=== PATIENT | male | born 1960 | race Caucasian/White ===

== ENCOUNTER 2018-04-11 12:07 | Day surgery (SDC) | payer BC, SELFPAY ==
[2018-04-11] VITALS (7 sets, daily range): BP systolic 97–130; BP diastolic 63–76; PULSE 67–85; RESP 15–21; TEMP 36.6–37; O2SAT 95–98; BMI 62.0
--- NOTE | 2018-04-11 | PATH_ITS ---
[facility] Accession Number: [id number] . 01 Material submitted: . SIGMOID POLYP . 02 Diagnosis: Sigmoid Polyp: Tubular adenoma; negative for high-grade dysplasia. MRV/04/12/2018 . 02 Electronically signed: . Светлана Taylor MD, Pathologist NPI- [id number] . 01 Gross description: . Received one formalin-filled container labeled with the patient's name and labeled sigmoid polyp. The specimen consists of a 0.4 cm portion of tissue. Entirely submitted in one cassette. ([id number]) /[facility] . 02 Pathologist provided ICD-10: K63.5 . 02 CPT . 296010 Performed at: [address] [facility] [address] [id number] MD Natanael Harper MD Phone: [phone] Performed at: 02 [facility] [address] [place], [place] [id number] MD Marilin Tate MD Phone: [phone]
[2018-04-11] MEDS: SODIUM CHLORIDE 0.9% 1,000 ML 42 ML IV (12:32)
--- NOTE | 2018-04-11 13:05 | PM.HP.1 ---
History of Present Illness Date Patient Seen: 04/11/18 Time Patient Seen: 13:06 Chief complaint: [id number] Narrative: Personal history of colon polyps and family history of colon cancer Patient History Medical History Anxiety (Acute) Family & Social History Social History: household members spouse Meds Home Medications Medication Instructions Recorded Confirmed Type zolpidem [Ambien CR] 6.25 mg PO HS #0 ter 02/18/13 History Exam Vital Signs (past 8 hours): - 04/11/18 12:19 Temperature 98.6 F Pulse Rate 85 Respiratory Rate 16 Blood Pressure 130/76 Pulse Oximetry 98 Oxygen Delivery Method Room Air Narrative Exam Narrative: Oropharynx free of lesions Chest clear to auscultation percussion Cardiac exam reveals no S3 or murmur Assessment & Plan Plan: Assessment/Plan Narrative: Personal history of colon polyps and family history of colon cancer in a father and paternal uncle. Need for follow-up colonoscopy. Risks benefits and alternatives have been explained.
--- NOTE | 2018-04-11 13:08 | P.HP_ITS ---
History of Present Illness Date Patient Seen: 04/11/18 Time Patient Seen: 13:06 Chief complaint: [id number] Narrative: Personal history of colon polyps and family history of colon cancer Patient History Medical History Anxiety (Acute) Family & Social History Social History: household members spouse Meds Home Medications Medication Instructions Recorded Confirmed Type zolpidem [Ambien CR] 6.25 mg PO HS #0 ter 02/18/13 History Exam Vital Signs (past 8 hours): - 04/11/18 12:19 Temperature 98.6 F Pulse Rate 85 Respiratory Rate 16 Blood Pressure 130/76 Pulse Oximetry 98 Oxygen Delivery Method Room Air Narrative Exam Narrative: Oropharynx free of lesions Chest clear to auscultation percussion Cardiac exam reveals no S3 or murmur Assessment & Plan Plan: Assessment/Plan Narrative: Personal history of colon polyps and family history of colon cancer in a father and paternal uncle. Need for follow-up colonoscopy. Risks benefits and alternatives have been explained.
--- NOTE | 2018-04-11 13:13 | PM.OP.ENDO ---
Operative Date/Time/Diagnoses Date of procedure: 04/11/18 Time of procedure: 13:13 Pre-op diagnosis: See indication and findings Procedure & Clinicians Study performed: Colonoscopy Same procedure as scheduled: Yes Indications: Family history of colon cancer in a father and paternal uncle and personal history of colon polyps Surgeon: Ashley Leggett Procedure Notes Procedure in detail: After informed consent was obtained the patient was placed in left lateral decubitus position. The video colonoscope was introduced the rectum slowly advanced to the cecum. On slow withdrawal mucosa was carefully examined. Preparation was good. The scope was removed. The patient tolerated the procedure well. Blood loss none Complications none Sedation Versed 8 mg fentanyl 100 mcg IV titration Total sedation time 23 min Findings 1. 5 mm sigmoid polyp Jumbo biopsy removed completely 2. Scattered sigmoid diverticulosis 3. Otherwise negative colonoscopy to cecum We will check pathology but this is almost certainly adenomatous and he will need follow-up colonoscopy in 5 years if it is. Versed
[2018-04-11] MEDS: MIDAZOLAM 5 MG/5 ML VIAL IV (13:24)
[2018-04-11] MEDS: fentaNYL 250 MCG/5 ML INJ IV (13:25)
--- NOTE | 2018-04-11 13:36 | SUR.PHASEI ---
stable pacu stay
--- NOTE | 2018-04-11 14:06 | SUR.PHASEII ---
ready for discharge, report to tara.
== END 2018-04-11 14:20 ==
LOC: ENDO 12:09
PROVIDERS: PCP Physician Assistant Medical; Visit Provider Internal Medicine Gastroenterology
PROC: 0DJD8ZZ Inspection of Lower Intestinal Tract, Via Natural or Artificial Opening Endoscopic (ICD-10-PCS; CPT 45378; principal; 2018-04-11 13:00)
DX: Z86.010 Personal history of colon polyps (principal); Z80.0 Family history of malignant neoplasm of digestive organs; F41.9 Anxiety disorder, unspecified; D12.5 Benign neoplasm of sigmoid colon
CPT/HCPCS: 45380; J2250; J3010

== ENCOUNTER → 2019-06-12 09:10 | Outpatient (CLI) | payer BC, SELFPAY ==
[2019-06-12 09:48] LABS: Influenza A - CEPHEID Flu A NEGATIVE (NEGATIVE); Influenza B - CEPHEID Flu B NEGATIVE (NEGATIVE)
== END ==
PROVIDERS: PCP Physician Assistant Medical; Visit Provider Physician Assistant
DX: R68.89 Other general symptoms and signs (principal)
CPT/HCPCS: 87502

== ENCOUNTER 2023-05-24 12:53 | Day surgery (SDC) | payer BC, SELFPAY ==
--- NOTE | 2023-05-24 | PATH_ITS ---
[facility] Accession Number: [id number] No. of containers..02 Tissue . 01 Material submitted: . PART A: cecum - CECAL POLYP PART B: colon - RIGHT COLON POLYP . 01 Diagnosis: A. Cecal Polyp: Tubular adenoma. . B. Right Colon Polyp: Tubular adenoma. [facility] 05/26/2023 1020 Local . 01 Electronically signed: . Emanuel Allen MD, PhD, Pathologist NPI- [id number] . 01 Gross description: . Part A: CECAL POLYP: Received in formalin is 1 fragment(s) of singh, soft tissue measuring 0.5 x 0.3 x 0.3 cm which is bisected and submitted entirely in 1 cassette(s) Part B: RIGHT COLON POLYP: Received in formalin is multiple fragment(s) of singh, soft tissue measuring 0.6 x 0.3 x 0.1 cm in aggregate submitted entirely in 1 cassette(s) /AA 05/25/2023 0408 Local . 01 Pathologist provided ICD-10: D12.0, D12.6 . 01 CPT . 722504, 480682 Specimen Comment: A courtesy copy of this report has been sent to [phone] Performed at: 01 [facility] [address] [place] [address] Suite [facility], [place], [place] [id number] MD Natanael Harper MD Phone: [phone]
[2023-05-24] MEDS: LACTATED RINGERS 1,000 ML 84 ML IV (13:18)
[2023-05-24 13:28] VITALS: BP 138/84; PULSE 71; RESP 16; TEMP 36.4; O2SAT 95; BMI 29.0
--- NOTE | 2023-05-24 13:49 | PM.HP.1 ---
History of Present Illness History of Present Illness Date Patient Seen: 05/24/23 Chief complaint: Colonoscopy Narrative: Personal history of colon polyps [facility] Medical History (Updated 06/12/19 @ 09:23 by Ava Abel PA-C) Bronchitis Anxiety Social History household members: spouse Smoking Status: Never smoker alcohol intake: former Meds Home Medications and Allergies Home Medications Medication Instructions Recorded Confirmed Type No Known Home Medications 05/24/23 05/24/23 History Allergies Allergy/AdvReac Type Severity Reaction Status Date / Time No Known Drug Allergies Allergy Verified 05/24/23 13:15 Exam Vital Signs (past 8 hours): - 05/24/23 13:28 Temperature 97.6 F Pulse Rate 71 Respiratory Rate 16 Blood Pressure 138/84 Pulse Oximetry 95 Oxygen Delivery Method Room Air Oxygen Delivery Method Room Air Narrative Exam Narrative: Oropharynx oropharynx free of lesions Chest clear to auscultation percussion Cardiac exam reveals no S3 or murmur Assessment & Plan Assessment & Plan narrative: History of colon polyps need for follow-up colonoscopy. Risks, benefits, alternatives have been explained.
--- NOTE | 2023-05-24 13:49 | PM.OP.COLON ---
Operative Date/Time/Diagnoses Date of procedure: 05/24/23 Pre-op diagnosis: See indication and findings Procedure & Clinicians Study performed: Colonoscopy Indications: History of colon polyps Surgeon: Ashley Leggett Procedure Notes Procedure in detail: After informed consent was obtained patient was placed in left lateral decubitus position. Video colonoscope was introduced the rectum slowly advanced cecum. Preparation was good. On slow withdrawal mucosa was carefully examined. The scope was removed. The patient tolerated procedure well. Blood loss none Complications none Sedation mac Findings 1. 6 mm polyp in the cecum cold snared and removed completely 2. 5 mm polyp in the left colon cold snared and removed completely 3. Otherwise negative colonoscopy to cecum Will be in touch regarding the pathology results and whether that should cause is to shorten the surveillance interval.
[2023-05-24 14:11] VITALS: BP 110/61; PULSE 69; RESP 25; TEMP 36.3; O2SAT 94
[2023-05-24 14:13] VITALS: BP 106/61; PULSE 67; RESP 28; O2SAT 93
[2023-05-24 14:19] VITALS: BP 108/64; PULSE 75; RESP 22; TEMP 36.6; O2SAT 94
[2023-05-24 14:20] VITALS: BP 125/53; PULSE 70; RESP 20; O2SAT 95
== END 2023-05-24 14:50 | disposition home or self-care (01) ==
PROVIDERS: PCP Physician Assistant Medical; Referring Provider Internal Medicine Gastroenterology; Visit Provider Internal Medicine Gastroenterology
PROC: 0DJD8ZZ Inspection of Lower Intestinal Tract, Via Natural or Artificial Opening Endoscopic (ICD-10-PCS; CPT 45378; principal; 2023-05-24 14:00)
DX: Z12.11 Encounter for screening for malignant neoplasm of colon (principal); Z86.010 Personal history of colon polyps; D12.0 Benign neoplasm of cecum; D12.2 Benign neoplasm of ascending colon
CPT/HCPCS: 45385; J2704

== ENCOUNTER → 2024-04-19 08:40 | Outpatient (CLI) | payer BC, SELFPAY | PROVIDERS: PCP Physician Assistant Medical; Visit Provider Registered Nurse | DX: R30.0 Dysuria (principal) | CPT/HCPCS: 87086 ==

== ENCOUNTER 2025-04-19 09:43 | Emergency (ER) | payer BC, SELFPAY ==
[2025-04-19] VITALS (9 sets, daily range): BP systolic 116–126; BP diastolic 63–72; PULSE 51–75; RESP 16–21; TEMP 36.4–36.6; O2SAT 97–99; BMI 29.8
--- NOTE | 2025-04-19 09:56 | EKG_ITS ---
[address] [address] Test Date: 2025-04-19 Pat Name: Alexandre Lorenz Department: Room: Gender: Male Diabetes Trainer: LIZA : 1960 Requested By: Order Number: [id number] Reading MD: Xu Fajardo Measurements Intervals [place] Rate: 78 P: 27 IL: 142 QRS: 15 QRSD: 82 T: 30 QT: 370 QTc: 421 Interpretive Statements Normal sinus rhythm Cannot rule out Anterior infarct , age undetermined Electronically Signed On 04-19-2025 14:40:42 PST by Xu Fajardo
--- NOTE | 2025-04-19 10:05 | ED.ARRPALP ---
HPI - Arrhythmia/Palpitations General Chief Complaint: Arrhythmia/Palpitations Stated Complaint: Increase in heart palpitations 5-6days ago Time Seen by Provider: 04/19/25 10:05 Source: patient Mode of arrival: Ambulatory History of Present Illness HPI narrative: This is a 65-year-old white male with history of PVCs who states that over the course of the past 2 weeks he has had increased amount of palpitations. No chest pain pressure heaviness no cough hemoptysis shortness of breath. Patient denies any drug or alcohol use patient admits to occasional caffeine use. Related Data Home Medications ?Medication ?Instructions ?Recorded ?Confirmed No Known Home Medications 04/18/25 04/18/25 Allergies Allergy/AdvReac Type Severity Reaction Status Date / Time No Known Drug Allergies Allergy Verified 04/19/25 09:47 Review of Systems Review of Systems ROS Unobtainable: All systems reviewed & are unremarkable except as noted in HPI and below Patient History Medical History Bronchitis Anxiety Social History household members: spouse alcohol intake: former tobacco type: cigarettes Exam Initial Vital Signs Initial Vital Signs: Vital Signs Temperature 97.6 F 04/19/25 09:47 Pulse Rate 75 04/19/25 09:47 Respiratory Rate 18 04/19/25 09:47 Blood Pressure 124/66 04/19/25 09:47 Pulse Oximetry 97 04/19/25 09:47 Oxygen Delivery Method Room Air 04/19/25 09:47 Const General: cooperative HENMT Head: normocephalic and atraumatic Ears: external ears normal and TM's normal bilaterally Nose: external nose normal and No nasal discharge Face and sinus: sinuses nontender, face symmetric, no sinus tenderness and No dry mucous membranes Mouth: oral mucosae normal and moist mucous membranes Teeth and gingiva: dentition normal Throat: tonsils normal and uvula midline Eyes Eyelids: eyelids normal Conjunctivae: conjunctivae normal Sclera: sclerae normal Pupils: PERRL EOM: EOM intact bilaterally Neck Neck: normal visual inspection, trachea midline, No lymphadenopathy, No midline deformity and No JVD Lymphatic: No lymphedema Chest Chest: normal inspection of the chest Resp Effort & Inspection: normal respiratory effort, able to speak in complete sentences, no respiratory distress and no use of accessory muscles Auscultation: clear to auscultation bilaterally, no rales, no rhonchi and no wheezes Cardio Rate: regular rate Rhythm: regular rhythm Heart Sounds: no click, no gallops, no murmurs and no rubs Pulses: normal peripheral pulses GI Inspection: non-distended Palpation: soft, no hepatosplenomegaly, No guarding, No pulsatile mass and No tender Auscultation: normal bowel sounds Back/Spine/Pelvis Back: No CVA tenderness Cervical Spine: cervical ROM normal and No pain with cervical ROM Thoracic/Lumbar Spine: thoracic and lumbar spine normal to inspection Skin General: no rashes or lesions noted, No jaundice and No petechiae Neuro General: patient alert, patient oriented x3, gait normal and no focal motor deficits Speech: speech normal Extrem General: full ROM, no clubbing, cyanosis or edema, no pedal edema and no calf tenderness Psych Appearance: well kempt Mental Status: mental status grossly normal Attitude: cooperative Thought Content: normal and suicidality Judgment: judgment good Course Orders Ordered: ED Orders 04/19/25 09:56 EKG-12 Lead Stat 04/19/25 10:38 Comprehensive Metabolic Panel Stat Magnesium Stat Troponin I Stat 04/19/25 11:10 Complete Blood Count AUTO DIFF Stat 04/19/25 12:45 Troponin I Stat Vital Signs Vital signs: Vital Signs - 8 hr 04/19/25 09:47 04/19/25 11:14 04/19/25 11:16 Temperature 97.6 F Pulse Rate 75 62 59 L Respiratory Rate 18 18 21 Blood Pressure 124/66 Pulse Oximetry 97 97 97 Oxygen Delivery Method Room Air 04/19/25 11:16 Temperature Pulse Rate Respiratory Rate Blood Pressure 121/63 Pulse Oximetry Oxygen Delivery Method MDM - Arrhythmia/Palpitations Lab Data 04/19/25 11:10 04/19/25 10:38 Labs: Lab Results 04/19/25 04/19/25 04/19/25 Range/Units 10:38 11:10 12:45 WBC 4.7 (4.5-11.0) X10^3/uL RBC 4.82 (4.5-5.9) X10^6/uL Hgb 15.4 (13.5-17.5) g/dL Hct 45.0 (41-53) % MCV 93.3 (80-100) fL MCH 31.9 (26-34) PG MCHC 34.2 (30-36) % RDW 13.9 (11.6-14.8) % Plt Count 165 (150-400) X10^3/uL Neut % (Auto) 52.6 (50-75) % Lymph % (Auto) 32.6 (25-40) % [place] % (Auto) 12.3 (3-14) % Eos % (Auto) 2.1 (2-4) % Baso % (Auto) 0.4 (0-2) % Neut # (Auto) 2500 (9638-1437) /uL Lymph # (Auto) 1500 (5290-4270) /uL [place] # (Auto) 600 (0-900) /uL Eos # (Auto) 100 (0-450) /uL Baso # (Auto) 0 (0-100) /uL Sodium 137 (137-145) mmol/L Potassium 4.4 (3.4-5.1) mmol/L Chloride 106 (98-107) mmol/L Carbon Dioxide 22 (22-32) mmol/L BUN 14 (9-20) mg/dL Creatinine 0.80 (0.66-1.25) mg/dL Estimated GFR > 60 (>60) mL/min BUN/Creatinine Ratio 17.5 (6-22) Glucose 125 H (70-99) mg/dL Calcium 8.9 (8.4-10.2) mg/dL Magnesium 2.0 (1.6-2.3) mg/dL Total Bilirubin 0.8 (0.2-1.3) mg/dL AST 62 H (17-59) IU/L ALT 51 H (<50) IU/L Alkaline Phosphatase 44 (38-126) U/L Troponin I 0.017 < 0.012 (0.01-0.034) ng/mL Total Protein 8.2 (6.3-8.2) g/dL Albumin 4.5 (3.5-5.0) g/dL Globulin 3.7 (1.7-4.1) g/dL Albumin/Globulin Ratio 1.2 (1.0-2.8) MDM Narrative Medical decision making narrative: Patient had 12 lead EKG reveals sinus rhythm 78 beats per minute normal axis no blocks no acute changes patient's CBC with normals chemistry within normal limits LFTs were minimally elevated with the AST of 62 and ALT of 51 troponin negative x2. Patient was monitored ER for a period of several hours. During this time the patient had no PVCs. At this point no clear explanation for the patient's symptoms I will recommend that he go get an outpatient Holter monitor for further evaluation and treatment differential diagnosis is palpitations PVCs APCs PSVT Discharge Plan Departure Patient Disposition: Home Clinical Impression: Palpitations Instructions: DI for Arrhythmias Prescriptions: No Action No Known Home Medications Referrals: Ema Holman PA-C [Primary Care Provider, Family Practice] - 3-5 days Stand Alone Forms: Patient Portal/API
[2025-04-19 11:00] LABS: Alanine Aminotransferase 51 IU/L (<50); Albumin 4.5 g/dL (3.5-5.0); Albumin Globulin Ratio 1.2 (1.0-2.8); Alkaline Phosphatase 44 U/L (38-126); Blood Urea Nitrogen 14 mg/dL (9-20); Calcium 8.9 mg/dL (8.4-10.2); Carbon Dioxide 22 mmol/L (22-32); Chloride 106 mmol/L (98-107); Estimated Glomerular Filt Rate > 60 mL/min (>60); Globulin 3.7 g/dL (1.7-4.1); Glucose 125 mg/dL (70-99); Magnesium 2.0 mg/dL (1.6-2.3); Sodium 137 mmol/L (137-145); Total Protein 8.2 g/dL (6.3-8.2)
[2025-04-19 11:02] LABS: HEMOLYSIS 119 (0-50)
[2025-04-19 11:03] LABS: Potassium 4.4 mmol/L (3.4-5.1)
[2025-04-19 11:12] LABS: Troponin I 0.017 ng/mL (0.01-0.034)
[2025-04-19 11:16] LABS: Add Manual Diff / Slide Review NO; Hematocrit 45.0 % (41-53); Hemoglobin 15.4 g/dL (13.5-17.5); Lymphocytes Absolute Auto 1500 /uL (1100-4500); Mean Corpuscular HGB Conc 34.2 % (30-36); Mean Corpuscular Hemoglobin 31.9 PG (26-34); Mean Corpuscular Volume 93.3 fL (80-100); Platelet Count 165 X10^3/uL (150-400)
[2025-04-19 13:15] LABS: Troponin I < 0.012 ng/mL (0.01-0.034)
== END 2025-04-19 15:27 | disposition home or self-care (01) ==
PROVIDERS: Emergency Provider Emergency Medicine; PCP Physician Assistant Medical
DX: R00.2 Palpitations (principal)
CPT/HCPCS: 36415; 80053; 83735; 84484; 85025; 93005; 99283; 99284